=== PATIENT | male | born 2000 | race Caucasian/White ===

== ENCOUNTER 2021-03-07 05:00 | Emergency (ER) | payer MEDICAID, SELFPAY ==
[2021-03-07 05:01] VITALS: BP 133/84; PULSE 91; RESP 16; TEMP 37.1; O2SAT 95; BMI 38.2
[2021-03-07 05:03] VITALS: BP 133/84; PULSE 91; RESP 16; TEMP 37.1; O2SAT 95
--- NOTE | 2021-03-07 05:20 | RAD_ITS ---
STUDY: X-RAY CHEST REASON FOR EXAM: Male, 20 years old. covid TECHNIQUE: Single AP portable view of the chest. COMPARISON: None. FINDINGS: Patchy infiltrate in the right upper lobe and left lower lobe. Lungs otherwise clear. There is no demonstrated pleural abnormality. Normal size heart. Normal mediastinum and lucas. Normal visualized pulmonary arteries. Normal visualized aortic arch and descending thoracic aorta. Normal visualized thoracic spine. Normal visualized ribs, clavicles, and shoulders. There is no demonstrated abnormality of the visualized soft tissue structures of the upper abdomen. RAD/Chest 1 View (Portable) IMPRESSION: Patchy right upper lobe and left lower lobe infiltrate Electronically Signed: Ke Gallagher DO at 6:16 EST Tel , Service support ,
--- NOTE | 2021-03-07 05:26 | ED.VIS.DYS ---
HPI History of Present Illness Chief Complaint: Cold Sx Informant: patient Onset/Context/Timing Onset: Days Context: gradual Timing: Continuous Current Severity: Mild Maximum Severity: Mild Associated Symptoms cough Narrative Narrative: 20-year-old male history of hypothyroidism and hypertension. Has had symptoms for the last 6 days he was tested positive for Covid. He is unvaccinated. States has had nausea, vomiting and diarrhea. He feels dehydrated. He is currently on no medications for the Covid. PE Risk Factors: Negative for Cancer, OCP + Smoking + > 35, Prior DVT or PE, Recent immobilization, Recent surgery and Recent travel Prior similar symptoms: No Recent Illness/Hospitalization: No PFSH PFSH Medical History Depression Hypertension Hypothyroid Home Medications dexamethasone [Decadron] 6 mg PO DAILY #10 tab 03/07/21 [Rx Last Taken Unknown] ondansetron 4 mg PO Q8H PRN 3 Days #7 tab 03/07/21 [Rx Last Taken Unknown] Allergy/AdvReac Type Severity Reaction Status Date / Time Penicillins [PCN] Allergy Hives Verified 03/07/21 05:03 Social History Smoking Status: Current every day smoker tobacco type: e-cigarettes ROS ROS ED ROS Narrative Cough, nausea, vomiting, diarrhea. Review of Systems ROS Unobtainable: Denies due to encephalopathy Constitutional Constitutional ED: Denies chills or fever(s) Eyes Eyes: Denies change in vision ENT ENT ED: Denies ear pain or sore throat Cardiovascular Cardiovascular: Denies chest pain Respiratory/Chest Respiratory/Chest: Reports cough and dyspnea Gastrointestinal Gastrointestinal: Reports diarrhea, nausea and vomiting; Denies abdominal pain Genitourinary Genitourinary ED: Denies dysuria Musculoskeletal Musculoskeletal: Reports myalgias Integumentary Denies rash Neurologic Neurologic: Denies headache(s) Psychiatric Psychiatric: Denies depression Endocrine Endocrinology: Denies polyuria Hematologic/Lymphatic Hematologic/Lymphatic: Denies easy bruising Allergic/Immunologic Allergic/Immunologic ED: Denies urticaria EXAM Physical Exam Narrative Exam Narrative: 20-year-old male no acute distress vital signs stable afebrile. Pulse ox 95% on room air no hypoxia. HEENT exam mildly dry mucous memories. Neck nontender no lymphadenopathy. Lungs clear to auscultation bilaterally. Heart regular rhythm no murmur. Abdomen soft nontender. Moving all 4 extremities. Nontender. Neurologically is awake and alert with no focal motor deficits. He does not look septic or toxic. Const Vital Signs: 03/07/21 05:01 03/07/21 05:03 03/07/21 05:05 Temperature 98.8 F 98.8 F Temperature Source Temporal Temporal Pulse Rate 91 91 Respiratory Rate 16 16 Respiratory Effort Short of Breath Blood Pressure 133/84 H 133/84 H Blood Pressure Mean 100 100 Pulse Ox 95 95 Positive well nourished, well developed and obese; Negative for cachectic, contractures or unkempt General Appearance ED: well developed and NAD; Negative for unkempt, cachectic, contractures or pallor Nutritional Appearance: obese; Negative for cachectic HEENT Reports dry mucous membranes atraumatic; Negative for trauma or tenderness Mouth ED: Yes dry mucous membranes Mouth: dry mucous membranes Eyes PERRL and EOMs intact bilaterally Neck no lymphadenopathy, supple, no meningeal signs and no JVD General: Negative for tenderness Resp normal respiratory effort and clear to auscultation bilaterally Auscultation: Negative for rales, rhonchi or wheezes Cardio regular rate, regular rhythm, S1 normal heart sound, S2 normal heart sound and no murmurs GI non-tender, non-distended and no masses Auscultation: normoactive bowel sounds Palpation: soft; Negative for tender, guarding or rebound tenderness present Back/Spine no CVA tenderness and normal to inspection General Back: Negative for CVA tenderness or tenderness Extremity normal to inspection General Extremety ED: Negative for edema or tenderness General Extremity: Negative for edema Neuro oriented x3 Sensorium / Orientation: alert, oriented to person, oriented to place and oriented to time; Negative for orientation impaired, confused, lethargic or stuporous Motor Exam: strength 5/5 throughout Psych mental status grossly normal Appearance: Negative for unkempt Thought Process: normal thought process Skin no wounds General Skin Exam: Negative for jaundice or pallor Lesions: no lesions Rashes: no rashes MDM MDM MDM Narrative Medical decision making narrative: 20-year-old male Covid +6-day history. Nausea, vomiting and diarrhea clinically looks mildly dehydrated. To be treated with IV fluids and IV Decadron. IV Zofran for the nausea. Checks x-ray will be obtained. He should be able to be discharged home will be referred to outpatient monoclonal antibody therapy and started on Decadron. Radiography Chest X-Ray - ED: 1 View and Read by ED Physician Diagnostic Testing: Chest x-ray, portable, single view interpreted myself consistent with Covid pneumonitis bilateral infiltrates more so on the right upper lung. No effusion. Normal cardiac silhouette. Discharge Plan Triage Chief Complaint: Cold Sx ED Provider: Parminder Myles Dx/Rx/DC Orders Clinical Impression: COVID-19, Nausea, vomiting, and diarrhea, Acute dehydration Instructions: ED Vomiting (Adult), Human Coronaviruses Prescriptions: New dexamethasone [Decadron] 6 mg tablet 6 mg PO DAILY Qty: 10 RF: 0 ondansetron 4 mg tablet,disintegrating 4 mg PO Q8H PRN (Reason: nausea and vomiting) 3 Days Qty: 7 RF: 0 Other Ambulatory Orders: COVID Outpatient Monoclonal Antibody Referral (Routine) Timeframe: 1 Day Facility: [facility] - Location: [facility] Ordered By: Dr. Parminder Myles Primary Care Provider: Sabrina Martin SHUT OFF WORKER Referrals: Scar Potts MD [STAFF PHYSICIAN] - 10-14 Days if not better NOT,DEFINED [NON-STAFF] - Activity Restrictions/Additional Instructions: Plenty of fluids and rest. Zofran for nausea. Decadron daily which is a steroid which should decrease the inflammation from the Covid. Follow-up with your doctor if not improving return emergency department if a lot worse. I referred you to the [facility] monoclonal antibody center. They should call you on Sunday and set up an appointment for you to return to have monoclonal antibodies infused. If they do not call you on Sunday call the hospital emergency department on Sunday and be connected with the monoclonal antibody center. This has to be done within 10 days of the onset of your symptoms. Disposition Disposition: Home, Self Care
[2021-03-07] MEDS: 0.9% Normal Saline 1,000 ML 1000 ML IV (05:35)
[2021-03-07] MEDS: dexAMETHasone 10 MG/ML Vial IV (05:35)
[2021-03-07] MEDS: Ondansetron 4 MG/2 ML Vial IV (05:35)
[2021-03-07 06:04] VITALS: BP 112/75; PULSE 95; RESP 16; O2SAT 97
== END 2021-03-07 06:11 | disposition home or self-care (01) ==
PROVIDERS: Emergency Provider Emergency Medicine; PCP Nurse Practitioner Family
DX: U07.1 COVID-19 (principal); R11.2 Nausea with vomiting, unspecified; R19.7 Diarrhea, unspecified; E86.0 Dehydration; E66.9 Obesity, unspecified
CPT/HCPCS: 71045; 96374; 96375; 99283; J7030; J2405

== ENCOUNTER 2021-03-09 15:48 | Emergency (ER) | payer MEDICAID, SELFPAY ==
[2021-03-09 15:49] VITALS: BP 136/69; PULSE 88; RESP 20; TEMP 36.9; O2SAT 96; BMI 38.2
[2021-03-09 16:00] VITALS: BP 135/86; PULSE 68; RESP 18; TEMP 36.9; O2SAT 97
--- NOTE | 2021-03-09 16:01 | EDS_ITS ---
HPI HPI - URI History of Present Illness Chief Complaint: Cough Informant: patient Onset/Context/Timing Onset: Days Context: Gradual Onset Timing: Continuous Current Severity: Mild Maximum Severity: Mild Associated Symptoms Associated Symptoms: Positive for Nasal Congestion, Myalgias and Productive Cough Narrative Narrative: 20-year-old male diagnosed on Sunday with Covid. Today is day 9. He is already on Decadron. He returned today just because the mild coughing he is having. He does have brown phlegm. No hemoptysis. He did follow-up with monoclonal antibody center. He talked to him on Sunday but never followed up to set up his infusion. I have already put a call out to them I spoke to one of their staff and there to call us back. Prior similar symptoms: Yes Recent Illness/Hospitalization: No ROS ROS ED ROS Narrative Cough. Myalgias. Review of Systems ROS Unobtainable: Denies due to encephalopathy Constitutional Constitutional ED: Reports chills; Denies fever(s) Eyes Eyes: Denies change in vision ENT ENT ED: Denies ear pain Cardiovascular Cardiovascular: Denies chest pain Respiratory/Chest Respiratory/Chest: Reports cough Gastrointestinal Gastrointestinal: Denies abdominal pain Genitourinary Genitourinary ED: Denies dysuria Musculoskeletal Musculoskeletal: Reports myalgias Integumentary Denies rash Neurologic Neurologic: Denies headache(s) Psychiatric Psychiatric: Denies depression Endocrine Endocrinology: Denies polyuria Hematologic/Lymphatic Hematologic/Lymphatic: Denies easy bruising Allergic/Immunologic Allergic/Immunologic ED: Denies urticaria PFSH PFSH Medical History COVID-19 Depression Hypertension Hypothyroid Home Medications dexamethasone [Decadron] 6 mg PO DAILY #10 tab 03/07/21 [Rx Last Taken Unknown] ondansetron 4 mg PO Q8H PRN 3 Days #7 tab 03/07/21 [Rx Last Taken Unknown] cholecalciferol (vitamin D3) 5,000 unit PO DAILY 03/09/21 [History Last Taken Unknown] levothyroxine 50 mcg PO DAILY 03/09/21 [History Last Taken Unknown] lisinopril 5 mg PO DAILY 03/09/21 [History Last Taken Unknown] sertraline 50 mg PO DAILY 03/09/21 [History Last Taken Unknown] Allergy/AdvReac Type Severity Reaction Status Date / Time Penicillins [PCN] Allergy Hives Verified 03/09/21 15:48 Social History Smoking Status: Current every day smoker tobacco type: e-cigarettes EXAM Physical Exam Narrative Exam Narrative: 20-year-old no acute distress vital signs stable afebrile. Pulse ox 96% on room air no signs of hypoxia. HEENT exam unremarkable. Lungs are clear equal symmetrical bilaterally. Heart regular rate and rhythm no murmur rate about 90. Otherwise exam unremarkable. Const Vital Signs: 03/09/21 15:49 Temperature 98.5 F Temperature Source Temporal Pulse Rate 88 Respiratory Rate 20 H Blood Pressure 136/69 H Blood Pressure Mean 91 Pulse Ox 96 Oxygen Delivery Method Room Air Positive well nourished, well developed and obese; Negative for cachectic or contractures General Appearance ED: well developed and NAD; Negative for cachectic, contractures, cyanotic, diaphoretic or pallor Nutritional Appearance: obese; Negative for cachectic HEENT Reports moist mucous membranes normocephalic and atraumatic External Ear: external ears normal Eyes PERRL and EOMs intact bilaterally General Eye ED: Negative for pale conjunctiva or scleral icterus Neck no lymphadenopathy, supple, no meningeal signs and no JVD General: Negative for anterior neck swelling or lymphadenopathy Resp normal respiratory effort and clear to auscultation bilaterally Effort and Inspection: Negative for retractions Auscultation: Negative for rales, rhonchi, wheezes or diminished lung sounds Cardio S1 normal heart sound, S2 normal heart sound and no murmurs Rate: regular rate; Negative for tachycardic Rhythm: regular rhythm; Negative for abnormal rhythm GI non-tender, non-distended and no masses Inspection: Negative for abdominal distention Auscultation: normoactive bowel sounds Palpation: soft; Negative for tender or guarding Back/Spine no CVA tenderness and normal ROM General Back: Negative for CVA tenderness Cervical Spine: Negative for cervical spine tenderness Extremity normal to inspection and full ROM Neuro oriented x3 Sensorium / Orientation: alert, oriented to person, oriented to place and oriented to time; Negative for orientation impaired, lethargic or stuporous Motor Exam: strength 5/5 throughout Psych mental status grossly normal Skin General Skin Exam: Negative for jaundice or pallor Lesions: no lesions Rashes: no rashes MDM MDM MDM Narrative Medical decision making narrative: 20-year-old male with Covid. He i I spoke to the infusion center they did speak the patient on Sunday they reach out to him to set up an infusion and they were unable to reach him. I discussed this with the patient however is done tomorrow. I will discuss with him to make sure he has a copy of his positive Covid results from the local urgent care. He is already on Decadron. He is clinically stable. Discharge Plan Triage Chief Complaint: Cough ED Provider: Parminder Myles Dx/Rx/DC Orders Clinical Impression: COVID-19 Instructions: Human Coronaviruses Prescriptions: No Action dexamethasone [Decadron] 6 mg tablet 6 mg PO DAILY Qty: 10 RF: 0 ondansetron 4 mg tablet,disintegrating 4 mg PO Q8H PRN (Reason: nausea and vomiting) 3 Days Qty: 7 RF: 0 levothyroxine 50 mcg tablet 50 mcg PO DAILY RF: 0 lisinopril 5 mg tablet 5 mg PO DAILY RF: 0 sertraline 50 mg tablet 50 mg PO DAILY RF: 0 cholecalciferol (vitamin D3) 125 mcg (5,000 unit) capsule 5,000 unit PO DAILY RF: 0 Primary Care Provider: Sabrina Martin NP Referrals: Sabrina Martin [employer]S SALES COUNTERPERSON, PARTS SALES COUNTERPERSON-C [Primary Care Provider] - As Needed Activity Restrictions/Additional Instructions: The infusion center will call you tomorrow morning to set you up to have the infusion done tomorrow afternoon. If they do not get a hold you by 1030 tomorrow morning call the emergency department and we will get you in the infusion center connected. Continue your Decadron. You also need to get a copy of your positive Covid results from the urgent care to have it with you tomorrow. Otherwise he cannot do the infusion. Disposition Disposition: Home, Self Care
== END 2021-03-09 16:22 | disposition home or self-care (01) ==
PROVIDERS: Emergency Provider Emergency Medicine; PCP Nurse Practitioner Family
DX: U07.1 COVID-19 (principal); I10 Essential (primary) hypertension; E03.9 Hypothyroidism, unspecified; E66.9 Obesity, unspecified; F32.A Depression, unspecified; F17.290 Nicotine dependence, other tobacco product, uncomplicated; Z68.38 Body mass index [BMI] 38.0-38.9, adult; Z79.899 Other long term (current) drug therapy
CPT/HCPCS: 99282

== ENCOUNTER 2021-03-10 15:51 | Outpatient (CLI) | payer MEDICAID, SELFPAY ==
[2021-03-10 16:18] VITALS: BP 120/85; PULSE 95; RESP 16; TEMP 38; O2SAT 90; BMI 38.2
[2021-03-10] MEDS: 0.9% Saline Lock 10 ML Syringe IV (16:21)
[2021-03-10] MEDS: Acetaminophen 325 MG Tablet 650 MG PO (16:31)
[2021-03-10 16:53] VITALS: BP 134/65; PULSE 93; RESP 22; TEMP 37.8; O2SAT 88
== END 2021-03-10 17:05 | disposition home or self-care (01) ==
LOC: MS3OUT 15:51 → MS3 15:52
PROVIDERS: PCP Nurse Practitioner Family; Referring Provider Nurse Practitioner Adult Health; Visit Provider Nurse Practitioner Adult Health
DX: U07.1 COVID-19 (principal)
CPT/HCPCS: J7050; M0245; Q0245; A4216

== ENCOUNTER 2021-03-10 17:17 | Inpatient (IN) | payer MEDICAID, SELFPAY ==
[2021-03-10 17:19] VITALS: BP 124/60; PULSE 86; RESP 18; TEMP 37.8; O2SAT 96; BMI 38.2
--- NOTE | 2021-03-10 17:49 | RAD_ITS ---
EXAM: XR CHEST, 1 VIEW CLINICAL INDICATION: SOB TECHNIQUE: Frontal view of the chest. This report was created using [employer] report generation technology. COMPARISON: Study done 3 days ago FINDINGS: LUNGS AND PLEURAL SPACES: Diffuse bilateral pneumonia is worse. No pneumothorax. No effusion. HEART: Unremarkable. Cardiac silhouette not enlarged. MEDIASTINUM: Central airways and mediastinal contour are unremarkable. BONES/JOINTS: Unremarkable. SOFT TISSUES: Unremarkable. RAD/Chest 1 View IMPRESSION: Diffuse bilateral pneumonia is worse. Electronically Signed: Hunter Berger MD at 18:57 EST , Service support ,
[2021-03-10 19:03] LABS: Lactic Acid 0.9 mmol/L (0.4-1.9)
--- NOTE | 2021-03-10 20:27 | ED.VIS.DYS ---
HPI History of Present Illness Chief Complaint: Shortness of Breath Detail of Chief Complaint: Positive Covid, hypoxia Informant: patient and family Onset/Context/Timing Onset: Weeks (Onset of symptoms March 01) Context: sudden Timing: Continuous Quality: Positive for Dyspnea on exertion; Negative for Orthopnea, PND and Wheezing Current Severity: Mild Maximum Severity: Severe Worsened by: Exertion and Coughing Relieved by: Nothing and - (Better with oxygen) Associated Symptoms cough, rhinorrhea, post nasal drip, fever and sore throat; Negative for chills or sweats Chest Pain: Positive for None Narrative Narrative: Patient is a 20-year-old male with history of hypothyroidism, depression, hypertension and obesity who was sent from the transfusion center after receiving his Covid monoclonal antibody therapy. He desaturated to 85%. He does vape. He denies history of VTE. He denies leg pain, swelling discoloration. He does report diarrhea. He denies blood in his diarrhea. He denies rash. PE Risk Factors: Negative for Cancer, OCP + Smoking + > 35, Prior DVT or PE, Recent immobilization, Recent surgery and Recent travel Prior similar symptoms: Yes Recent Illness/[facility]: [facility] Medical History COVID-19 Depression Hypertension Hypothyroid Home Medications dexamethasone [Decadron] 6 mg PO DAILY #10 tab 03/07/21 [Rx Last Taken Unknown] ondansetron 4 mg PO Q8H PRN 3 Days #7 tab 03/07/21 [Rx Last Taken Unknown] cholecalciferol (vitamin D3) 5,000 unit PO DAILY 03/09/21 [History Last Taken Unknown] levothyroxine 50 mcg PO DAILY 03/09/21 [History Last Taken Unknown] lisinopril 5 mg PO DAILY 03/09/21 [History Last Taken Unknown] sertraline 50 mg PO DAILY 03/09/21 [History Last Taken Unknown] Allergy/AdvReac Type Severity Reaction Status Date / Time Penicillins [PCN] Allergy Hives Verified 03/10/21 17:19 Social History (Updated 03/10/21 @ 20:[address] Sameer Lynn MD) household members: family Smoking Status: Current every day smoker tobacco type: e-cigarettes Smokeless tobacco user: dissolvable tobacco substance use type: does not use ROS ROS ED Constitutional Constitutional ED: Reports chills and fever(s); Denies sweats or weight loss Eyes Eyes: Denies blurry vision, change in vision or diplopia ENT ENT ED: Reports rhinorrhea and sore throat; Denies ear pain Cardiovascular Cardiovascular: Denies chest pain, orthopnea, palpitations, paroxysmal nocturnal dyspnea or racing heartbeat Respiratory/Chest Respiratory/Chest: Reports cough, dyspnea and dyspnea on exertion; Denies orthopnea, paroxysmal nocturnal dyspnea or sputum Gastrointestinal Gastrointestinal: Reports diarrhea and nausea; Denies abdominal pain, constipation or vomiting Genitourinary Genitourinary ED: Denies dysuria, hematuria or urinary frequency Musculoskeletal Musculoskeletal: Reports arthralgias and myalgias; Denies back pain or neck pain Integumentary Denies rash Neurologic Neurologic: Reports headache(s) and weakness; Denies paresthesias Endocrine Endocrinology: Denies polydipsia, polyphagia or polyuria Hematologic/Lymphatic Hematologic/Lymphatic: Denies easy bleeding or easy bruising Allergic/Immunologic Allergic/Immunologic ED: Denies mouth swelling or urticaria EXAM Physical Exam Const Vital Signs: 03/10/21 17:19 03/10/21 21:15 Temperature 100.1 F H Temperature Source Temporal Pulse Rate 86 88 Respiratory Rate 18 18 Respiratory Effort Short of Breath Respiratory Depth Shallow Respiratory Pattern Tachypnea Blood Pressure 124/60 H Blood Pressure Mean 81 Pulse Ox 96 93 Oxygen Delivery Method Nasal Cannula Nasal Cannula Oxygen Flow Rate (L/min) 2 3 Positive well nourished, well developed and obese General Appearance ED: well developed; Negative for NAD or pallor Nutritional Appearance: obese HEENT Reports TM's clear and dry mucous membranes atraumatic; Negative for tenderness Tympanic Membrane ED: Yes TM's clear Mouth ED: Yes dry mucous membranes Mouth: dry mucous membranes Eyes PERRL and EOMs intact bilaterally General Eye ED: Negative for pale conjunctiva or scleral icterus Neck no lymphadenopathy, supple, no meningeal signs and no JVD Resp No normal respiratory effort and No clear to auscultation bilaterally Auscultation: rales bilateral mid and lower and diminished lung sounds Cardio regular rate, regular rhythm, S1 normal heart sound, S2 normal heart sound and no murmurs GI non-tender, non-distended and no masses Auscultation: normoactive bowel sounds Palpation: soft Back/Spine no CVA tenderness and normal to inspection Back/Spine Narrative: There is no asymmetry, swelling, discoloration, leg vein distention, palpable cords or tenderness along the distribution of the deep venous system. Extremity normal to inspection General Extremety ED: Negative for edema or tenderness General Extremity: Negative for edema Neuro oriented x3, CN's II-XII intact bilaterally and no sensory deficits noted [place] Coma Scale: document GCS findings Spontaneous Obeys Commands Oriented 15 Sensorium / Orientation: alert Motor Exam: strength 5/5 throughout Psych mental status grossly normal Skin no wounds General Skin Exam: Negative for pallor Lesions: no lesions Rashes: no rashes and No rashes noted MDM MDM MDM Narrative Medical decision making narrative: Sent presents from transfusion center because of a pulse ox of 85% after infusion of the monoclonal antibody. Onset of symptoms March 01. He received Decadron. Chest x-ray to confirm pneumonia. Appropriate blood work. He is febrile. Will treat with Tylenol. Lab Data Attestation: I reviewed the patient's lab results. Lab results narrative: His white count is elevated with shift symptoms started 10 days ago blood cultures were obtained and he was started on levofloxacin for possible concomitant bacterial/community-acquired pneumonia. Labs: Laboratory Results - last 24 hr 03/10/21 03/10/21 03/10/21 18:20 21:03 21:03 WBC 15.2 H RBC 4.50 L Hgb 12.6 L Hct 38.8 L MCV 86.2 MCH 28.0 MCHC 32.5 RDW Std Deviation 41.5 RDW Coeff of Viir 13.1 Plt Count 226 MPV 9.3 Immature Gran % (Auto) 1.200 H Neut % (Auto) 87.7 H Lymph % (Auto) 9.1 L Castro % (Auto) 1.9 Eos % (Auto) 0.0 Baso % (Auto) 0.1 Absolute Neuts (auto) 13.4 H Absolute Lymphs (auto) 1.39 Nucleated RBC % 0 PT 15.1 H INR 1.3 APTT 29.5 Sodium Potassium Chloride Carbon Dioxide Anion Gap BUN Creatinine Estim Creat Clear Calc Est GFR (MDRD) Af Amer Est GFR (MDRD) Non-Af BUN/Creatinine Ratio Glucose Lactic Acid 0.9 Calcium Total Bilirubin AST ALT Alkaline Phosphatase Total Protein Albumin Globulin Albumin/Globulin Ratio 03/10/21 21:03 WBC RBC Hgb Hct MCV MCH MCHC RDW Std Deviation RDW Coeff of Viri Plt Count MPV Immature Gran % (Auto) Neut % (Auto) Lymph % (Auto) Castro % (Auto) Eos % (Auto) Baso % (Auto) Absolute Neuts (auto) Absolute Lymphs (auto) Nucleated RBC % PT INR APTT Sodium 136 Potassium 4.6 Chloride 100 Carbon Dioxide 29.0 Anion Gap 7 BUN 8 Creatinine 0.84 Estim Creat Clear Calc 121.01 Est GFR (MDRD) Af Amer 148 Est GFR (MDRD) Non-Af 122 BUN/Creatinine Ratio 9.6 L Glucose 112 H Lactic Acid Calcium 8.1 L Total Bilirubin 0.70 AST 60 H ALT 42 Alkaline Phosphatase 35 L Total Protein 7.2 Albumin 2.7 L Globulin 4.5 H Albumin/Globulin Ratio 0.6 L Radiography Chest X-Ray - ED: 1 View, Read by ED Physician (Bilateral peripheral interstitial pneumonia due to Covid), Normal, Heart and Bony Structures Diagnostic Testing: Clinical Impression(s) from Imaging Studies Chest X-Ray 03/10/21 17:49 IMPRESSION: Diffuse bilateral pneumonia is worse. Electronically Signed: Hunter Berger MD at 18:57 EST , Service support , Discharge Plan Dx/Rx/DC Orders Clinical Impression: Pneumonia due to 2019-nCoV, Acute respiratory failure with hypoxemia, Fever Disposition Disposition: Acute Care [facility]
[2021-03-10 21:09] LABS: Absolute Lymphocyte Count 1.39 X10^3/uL (0.83-4.51); Absolute Neutrophil Count 13.4 X10^3/uL (2.0-7.7); Basophil# 0.02 X10^3/uL; Basophil% 0.1 % (0-1); Hematocrit 38.8 % (40-54); Hemoglobin 12.6 g/dL (13.0-16.5); Lymphocyte # 1.39 X10^3/ul (0.83-4.51); Lymphocyte % 9.1 % (19-41); Mean Corp Hgb Conc 32.5 g/dL (32-36); Mean Corpuscular Volume 86.2 fL (80-94); Mean Platelet Vol. 9.3 fl (6.2-12.0); Monocyte# 0.29 X10^3/uL; Monocyte% 1.9 % (0-10); NRBC Flagged by Analyzer 0 % (0-5); Neutrophil # 13.35 X10^3/uL (2.7-7.7); Neutrophil % 87.7 % (47-70); Platelet Count 226 K/mm3 (150-450); RBC Distribution Width CV 13.1 % (11.6-14.6); RBC Distribution Width SD 41.5 fl (35.1-43.9); White Blood Count 15.2 K/mm3 (4.4-11.0)
[2021-03-10] MEDS: Acetaminophen 325 MG Tablet 650 MG PO (21:12)
[2021-03-10] MEDS: dexAMETHasone 10 MG/ML Vial IV (21:12)
[2021-03-10 21:15] VITALS: PULSE 88; RESP 18; RESP 21; O2SAT 93; O2SAT 94
[2021-03-10] MEDS: levoFLOXacin IV 750 MG/150 ML BAG 100 MG IV (21:28)
[2021-03-10 21:34] LABS: International Normalized Ratio 1.3; Prothrombin Time (Protime)PT. 15.1 SECONDS (11.7-14.9)
[2021-03-10 21:35] LABS: Partial Thromboplast Time 29.5 Seconds (24.1-36.2)
[2021-03-10 21:49] LABS: ALB/GLOB Ratio 0.6 RATIO (0.9-2.4); AST(SGOT) 60 U/L (15-37); Alanine Aminotransfer ALT/SGPT 42 U/L (16-61); Albumin, Serum 2.7 g/dL (3.2-5.0); Alkaline Phosphatase 35 U/L (45-117); Anion Gap 7 (5-15); BUN 8 mg/dL (7-18); BUN/Creat Ratio 9.6 RATIO (10-20); Calcium,Total 8.1 mg/dL (8.5-10.1); Chloride 100 mmol/L (98-107); Creatinine, Serum 0.84 mg/dL (0.70-1.30); EST Glomerular Filtration Rate 122 mL/min (>60); Est Glom Filt Rate - Afr Amer 148 mL/min (>60); Estimated Creatinine Clearance 121.01 ml/min; Globulin 4.5 g/dL (2.2-4.2); Glucose 112 mg/dL (74-106); Potassium 4.6 mmol/L (3.5-5.1); Protein, Total 7.2 g/dL (6.4-8.2); Sodium Level 136 mmol/L (136-145)
--- NOTE | 2021-03-10 22:52 | PCM.HP.STD ---
HPI - General General Date of Admission: 03/10/21 HPI Narrative KATI WRIGHT, is a 20 M with a significant history of hypertension who presents to emergency department with progressive worsening Covid-like symptoms. Patient went to an infusion center for a monoclonal antibody. While he was there he was hypoxic so after completion of the monoclonal antibody infusion he was sent to the emergency department. His Covid-like symptoms started on March 01. He reports at home temperature of 104 Fahrenheit. He has chills, myalgia, diarrhea, nausea, vomiting, diarrhea, rhinorrhea, anosmia and dysgeusia. [facility] Medical History COVID-19 Depression Hypertension Hypothyroid Home Medications dexamethasone [Decadron] 6 mg PO DAILY #10 tab 03/07/21 [Rx Last Taken Unknown] ondansetron 4 mg PO Q8H PRN 3 Days #7 tab 03/07/21 [Rx Last Taken Unknown] cholecalciferol (vitamin D3) 5,000 unit PO DAILY 03/09/21 [History Last Taken Unknown] levothyroxine 50 mcg PO DAILY 03/09/21 [History Last Taken Unknown] lisinopril 5 mg PO DAILY 03/09/21 [History Last Taken Unknown] sertraline 50 mg PO DAILY 03/09/21 [History Last Taken Unknown] Allergy/AdvReac Type Severity Reaction Status Date / Time Penicillins [PCN] Allergy Hives Verified 03/10/21 17:19 Family History Other Cancer Diabetes Heart disease Surgical History History of tonsillectomy Social History household members: family and other housing: apartment current occupational status: employed Smoking Status: Current every day smoker tobacco type: e-cigarettes Smokeless tobacco user: dissolvable tobacco substance use type: does not use ROS ROS Narrative Constitutional: Reports fever and chills. Denies change in weight Eyes: Denies blurry vision, change in eye color, change in vision, discharge from eye(s), double vision, erythema, eye pain, loss of vision or other HEENT: Reports rhinorrhea. Denies abnormal hearing, dysphagia, ear pain, epistaxis, headache(s), hearing loss, nasal congestion, nasal discharge, post nasal drip, sinus pressure, sore throat or other Cardiovascular: Denies chest pain or palpitations. Respiratory/Chest: Reports productive cough. Reports some wheezes. Gastrointestinal: Denies abdominal pain, coffee ground emesis, constipation, diarrhea, dyspepsia, hematemesis, hematochezia, loose stools, melena, nausea, vomiting or other Genitourinary: Denies burning urination, difficulty urinating, dysuria, hematuria, nocturia, urinary frequency, urinary hesitancy, urinary incontinence, urinary urgency or other Musculoskeletal: Reports myalgia. Denies arthralgias, back pain, joint pain, joint stiffness, joint swelling,neck pain or other Neurologic: Denies abnormal gait, abnormal speech, confusion, disequilibrium, dizziness, focal weakness, headache(s), numbness, paresthesias, seizure-like activity, seizures, syncope, tingling, tremor(s) or other Psychiatric: Denies anxiety, depression, homicidal ideation, suicidal ideation or other Endocrinology: Denies change in body appearance, cold intolerance, excessive sweating, heat intolerance, polydipsia, polyuria or other Hematologic/Lymphatic: Denies anemia, easy bleeding, easy bruising, lymphadenopathy or other Integumentary: Denies rashes Allergic/Immunologic: Denies rhinitis, hives, eczema, asthma or other Vital Signs Vital Signs Vital Signs: 03/10/21 17:19 03/10/21 21:15 Temperature 100.1 F H Temperature Source Temporal Pulse Rate 86 88 Respiratory Rate 18 18 Respiratory Effort Short of Breath Respiratory Depth Shallow Respiratory Pattern Tachypnea Blood Pressure 124/60 H Blood Pressure Mean 81 Pulse Ox 96 93 Oxygen Delivery Method Nasal Cannula Nasal Cannula Oxygen Flow Rate (L/min) 2 3 Weight Weight: 104.326 kg Body Mass Index (BMI) 38.2 Physical Exam Narrative Physical exam: General: Well-nourished, well-developed. Head: Normocephalic, atraumatic, no tenderness Eyes: PERRLA, EOMI ENT, no trauma, moist mucous membranes, no rhinorrhea Neck: Nontender, full range of motion, no spinal tenderness, deformities, step-off CVS: Regular rate and rhythm. S1-S2 present. No murmur, gallop or rub. Respiratory : Tachypnea. Rales. Chest wall nontender, no wheezing Abdomen: Soft, nontender, nondistended, normal bowel sounds, no masses : Deferred Back: Nontender, no CVA tenderness, no midline spinal tenderness, deformities, step-offs Extremities: Nontender full range of motion, no trauma Skin: Normal color, no trauma, abrasions Neuro: Alert, oriented, cranial nerves II through XII grossly intact. Psychiatry: Normal mood. Normal affect. Not depressed. Not anxious. Results Lab / Micro Data Result Diagrams: 03/11/21 06:50 03/11/21 06:50 Labs: Laboratory Results - last 24 hr 03/10/21 18:20: Lactic Acid 0.9 03/10/21 21:03: WBC 15.2 H, RBC 4.50 L, Hgb 12.6 L, Hct 38.8 L, MCV 86.2, MCH 28.0, MCHC 32.5, RDW Std Deviation 41.5, RDW Coeff of Viri 13.1, Plt Count 226, MPV 9.3, Immature Gran % (Auto) 1.200 H, Neut % (Auto) 87.7 H, Lymph % (Auto) 9.1 L, [place] % (Auto) 1.9, Eos % (Auto) 0.0, Baso % (Auto) 0.1, Absolute Neuts (auto) 13.4 H, Absolute Lymphs (auto) 1.39, Nucleated RBC % 0 03/10/21 21:03: PT 15.1 H, INR 1.3, APTT 29.5 03/10/21 21:03: Sodium 136, Potassium 4.6, Chloride 100, Carbon Dioxide 29.0, Anion Gap 7, BUN 8, Creatinine 0.84, Estim Creat Clear Calc 121.01, Est GFR (MDRD) Af Amer 148, Est GFR (MDRD) Non-Af 122, BUN/Creatinine Ratio 9.6 L, Glucose 112 H, Calcium 8.1 L, Total Bilirubin 0.70, AST 60 H, ALT 42, Alkaline Phosphatase 35 L, Total Protein 7.2, Albumin 2.7 L, Globulin 4.5 H, Albumin/Globulin Ratio 0.6 L Micro: Microbiology 03/10/21 20:30 Nasal Secretion SARS-CoV-2 Antigen (Rapid) - Final SARS-CoV-2 (COVID 19) Radiology Impression Chest X-Ray 03/10/21 17:49 IMPRESSION: Diffuse bilateral pneumonia is worse. Electronically Signed: Hunter Berger MD at 18:57 EST , Service support , Assessment & Plan Assessment/Plan (1) Acute respiratory failure with hypoxemia: (2) COVID-19: PLAN: Acute hypoxemic respiratory failure secondary to SARS- COV 2 On room air oxygen saturation was 88% at the emergency department and required supplemental oxygenation. Supplemental oxygenation continued. Emergent department microbiology reviewed showed a positive rapid Covid antigen. Actual chest xray independently interpreted showed bilateral pneumonia and agree with radiologist interpretation above Procalcitonin ordered. Creatinine clearance is 121.01. AST is mildly elevated at 60 and ALT is normal. Will start patient on remdesivir. Also Decadron ordered. Trend CBC and CMP Tylenol for fever Mucinex ordered Hypertension Blood pressure is not within goal Lisinopril continued continued. Trend blood pressure and adjust blood pressure medications. Depression/anxiety sertraline continued Hypothyroidism Synthroid continued DVT prophylaxis: Subcutaneous Lovenox ordered. Charges/Coding Visit Charges Inpatient E&M: 44522 Init Hosp L3
[2021-03-10 23:04] VITALS: BP 113/63; PULSE 109; RESP 14; TEMP 37.2; O2SAT 93
[2021-03-11] VITALS (14 sets, daily range): BP systolic 113–143; BP diastolic 54–64; PULSE 59–90; RESP 16–24; TEMP 36.3–37.2; O2SAT 91–97; BMI 40.4
--- NOTE | 2021-03-11 00:08 | PCS.PANDOC ---
PANDEMIC DOCUMENTATION INITIATED: Date: 11/15/2020 Time: 190
[2021-03-11] MEDS: guaiFENesin 1,200 MG Tablet 1200 MG PO ×2 (00:35→09:48)
[2021-03-11] MEDS: Enoxaparin 30 MG/0.3 ML Syringe SC ×2 (00:35→09:48)
[2021-03-11 00:41] LABS: Procalcitonin 0.27 ng/mL (0.00-0.09)
[2021-03-11 07:17] LABS: Absolute Lymphocyte Count 1.11 X10^3/uL (0.83-4.51); Absolute Neutrophil Count 12.9 X10^3/uL (2.0-7.7); Basophil# 0.03 X10^3/uL; Basophil% 0.2 % (0-1); Hemoglobin 13.1 g/dL (13.0-16.5); Lymphocyte # 1.11 X10^3/ul (0.83-4.51); Lymphocyte % 7.7 % (19-41); Mean Corp Hgb Conc 32.8 g/dL (32-36); Mean Corpuscular Volume 85.5 fL (80-94); Mean Platelet Vol. 9.1 fl (6.2-12.0); Monocyte# 0.32 X10^3/uL; Monocyte% 2.2 % (0-10); NRBC Flagged by Analyzer 0.1 % (0-5); Neutrophil # 12.87 X10^3/uL (2.7-7.7); POSITIVE MORPHOLOGY YES; Platelet Count 297 K/mm3 (150-450); RBC Distribution Width CV 12.9 % (11.6-14.6); RBC Distribution Width SD 40.1 fl (35.1-43.9); Red Blood Count 4.68 M/mm3 (4.6-6.2); White Blood Count 14.5 K/mm3 (4.4-11.0)
[2021-03-11 07:26] LABS: Differential Indicated SCAN CRITERIA MET
[2021-03-11 07:42] LABS: ALB/GLOB Ratio 0.5 RATIO (0.9-2.4); AST(SGOT) 37 U/L (15-37); Alanine Aminotransfer ALT/SGPT 38 U/L (16-61); Albumin, Serum 2.4 g/dL (3.2-5.0); Alkaline Phosphatase 34 U/L (45-117); Anion Gap 7 (5-15); BUN 9 mg/dL (7-18); BUN/Creat Ratio 11.5 RATIO (10-20); Calcium,Total 8.2 mg/dL (8.5-10.1); Chloride 99 mmol/L (98-107); Creatinine, Serum 0.78 mg/dL (0.70-1.30); EST Glomerular Filtration Rate 132 mL/min (>60); Est Glom Filt Rate - Afr Amer 160 mL/min (>60); Estimated Creatinine Clearance 130.32 ml/min; Globulin 4.4 g/dL (2.2-4.2); Glucose 130 mg/dL (74-106); Potassium 3.4 mmol/L (3.5-5.1); Protein, Total 6.8 g/dL (6.4-8.2); Sodium Level 136 mmol/L (136-145)
[2021-03-11 07:55] LABS: Anisocytosis 1+
[2021-03-11] MEDS: Lisinopril 5 MG Tablet PO (09:48)
[2021-03-11] MEDS: Sertraline 50 MG Tablet PO (09:48)
[2021-03-11] MEDS: Cholecalciferol (VIT D3) 25 MCG TABLET (1,000 UNITS) 125 MCG PO (09:48)
[2021-03-11] MEDS: Levothyroxine 50 MCG Tablet PO (09:48)
[2021-03-11] MEDS: dexAMETHasone 2 MG TABLET 6 MG PO (09:49)
--- NOTE | 2021-03-11 13:04 | PN.HOSP_ITS ---
Subjective Subjective Breathing ok, tolerating 6 liters. Unvaccinated. Objective Data Objective Data Vital Signs: Vital Signs Temp Pulse Resp BP Pulse Ox 37.2 C 74 16 117/59 L 94 03/11/21 09:45 03/11/21 09:45 03/11/21 09:45 03/11/21 09:45 03/11/21 10:41 Oxygen Flow Rate (L/min) 6 Oxygen Delivery Method Nasal Cannula Weight: 110.1 kg Body Mass Index (BMI) 40.4 Intake & Output: Intake and Output for Last 24 Hours 03/09/21 03/10/21 03/11/21 23:59 23:59 23:59 Intake Total 150 / 150 250 / 250 Output Total 1025 / 1025 Balance 150 / 150 -775 / -775 Lab / Micro Data Result Diagrams: 03/11/21 06:50 03/11/21 06:50 Labs: Laboratory Results - last 24 hr 03/10/21 18:20: Lactic Acid 0.9 03/10/21 18:20: Procalcitonin 0.27 H 03/10/21 21:03: WBC 15.2 H, RBC 4.50 L, Hgb 12.6 L, Hct 38.8 L, MCV 86.2, MCH 28.0, MCHC 32.5, RDW Std Deviation 41.5, RDW Coeff of Viri 13.1, Plt Count 226, MPV 9.3, Immature Gran % (Auto) 1.200 H, Neut % (Auto) 87.7 H, Lymph % (Auto) 9.1 L, [place] % (Auto) 1.9, Eos % (Auto) 0.0, Baso % (Auto) 0.1, Absolute Neuts (auto) 13.4 H, Absolute Lymphs (auto) 1.39, Nucleated RBC % 0 03/10/21 21:03: PT 15.1 H, INR 1.3, APTT 29.5 03/10/21 21:03: Sodium 136, Potassium 4.6, Chloride 100, Carbon Dioxide 29.0, Anion Gap 7, BUN 8, Creatinine 0.84, Estim Creat Clear Calc 121.01, Est GFR (MDRD) Af Amer 148, Est GFR (MDRD) Non-Af 122, BUN/Creatinine Ratio 9.6 L, Glucose 112 H, Calcium 8.1 L, Total Bilirubin 0.70, AST 60 H, ALT 42, Alkaline Phosphatase 35 L, Total Protein 7.2, Albumin 2.7 L, Globulin 4.5 H, Albumin/Globulin Ratio 0.6 L 03/11/21 06:50: WBC 14.5 H, RBC 4.68, Hgb 13.1, Hct 40.0, MCV 85.5, MCH 28.0, MCHC 32.8, RDW Std Deviation 40.1, RDW Coeff of Viri 12.9, Plt Count 297, MPV 9.1, Immature Gran % (Auto) 0.900, Neut % (Auto) 89.0 H, Lymph % (Auto) 7.7 L, [place] % (Auto) 2.2, Eos % (Auto) 0.0, Baso % (Auto) 0.2, Absolute Neuts (auto) 12.9 H, Absolute Lymphs (auto) 1.11, Nucleated RBC % 0.1, Anisocytosis 1+ 03/11/21 06:50: Sodium 136, Potassium 3.4 L, Chloride 99, Carbon Dioxide 30.0, Anion Gap 7, BUN 9, Creatinine 0.78, Estim Creat Clear Calc 130.32, Est GFR (MDRD) Af Amer 160, Est GFR (MDRD) Non-Af 132, BUN/Creatinine Ratio 11.5, Glucose 130 H, Calcium 8.2 L, Total Bilirubin 0.50, AST 37, ALT 38, Alkaline Phosphatase 34 L, Total Protein 6.8, Albumin 2.4 L, Globulin 4.4 H, Albumin/Gl obulin Ratio 0.5 L Micro: Microbiology 03/10/21 20:30 Nasal Secretion SARS-CoV-2 Antigen (Rapid) - Final SARS-CoV-2 (COVID 19) Radiography Diagnostic Testing: Radiology Impression Chest X-Ray 03/10/21 17:49 IMPRESSION: Diffuse bilateral pneumonia is worse. Electronically Signed: Hunter Berger MD at 18:57 EST , Service support , Physical Exam Const alert and no apparent distress Resp normal respiratory effort, no retractions, no use of accessory muscles and clear to auscultation bilaterally Cardio regular rate, regular rhythm, S1 normal heart sound and S2 normal heart sound GI normal to inspection, nondistended, normoactive bowel sounds, soft to palpation, non-tender and non-distended Assessment & Plan Assessment/Plan (1) Acute respiratory failure with hypoxemia: (2) COVID-19: PLAN: 1. Acute hypoxemic respiratory failure secondary to SARS- COV 2 On room air oxygen saturation was 88% at the emergency department and required supplemental oxygenation. Supplemental oxygenation continued. Actual chest xray independently interpreted showed bilateral pneumonia and agree with radiologist interpretation above Procalcitonin ordered. Creatinine clearance is 121.01. AST is mildly elevated at 60 and ALT is normal. Will start patient on remdesivir. Also Decadron ordered. Trend CBC and CMP Tylenol for fever Mucinex ordered check D-dimer 2. Acute COVID 19 unvaccinated on dexamethasone and remdesivir on set 03/01, quarantine through 03/20 3. Hypertension Blood pressure is not within goal Lisinopril continued continued. Trend blood pressure and adjust blood pressure medications. 4. Depression/anxiety sertraline continued 5. Hypothyroidism Synthroid continued 6. DVT prophylaxis: Subcutaneous Lovenox ordered. Charges/Coding Visit Charges Inpatient E&M: 93999 Subs Hosp L2
--- NOTE | 2021-03-11 14:15 | CASEMGMT ---
NERY DOBSON assessment: Initial transition planning/care coordination assessment. NERY DOBSON introduced self and role at [facility], pt voices understanding and consents to assessment. Pt speaks in full sentences on 6L nc. Pt is A/Ox4 and answers questions appropriately. Pt states is not vaccinated and tested COVID + at [facility] urgent care in [place] on 03/02 or 03/03. Pt states family is fine and states no concerns getting resources once home. Care providers, pharmacy, and demographics verified. Presentation: Pt desatted s/p monoclonal antibx infusion Admitting dx: COVID PCP: Mario Specialists: Pt states no current specialists. Preferred Pharmacy: [facility] Insurance: [facility] Prescription Benefit: [facility] Living Will/HPOA: Pt does not have LW/HPOA and declines AD info at this time. LNOK: Heike Lynn, sister Living Arrangements: Pt lives with sig other in apt with 1-2 steps in and states no concerns at home. Pt states is independent with ADL's. Transportation: Pt drives self and states no transportation concerns. DME/HHC: Pt states no current DME or need for DME. Pt states no preference for DME, if qualifies for home oxygen. Pt states no hx of HHC or SNF. Pt states no concerns with going home at discharge. 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 Pt states vapes daily but does not drink ETOH. Pt states no further concerns/needs. CM to to follow for home oxygen need and any further discharge planning/needs. Advised pt to ask for CM if any further questions/concerns/needs arise, voices understanding. Pt Goal: Home Plan[place] NERY DOBSON
[2021-03-11 14:23] LABS: D-Dimer Quantitative (DVT/PE) 0.81 FEU/ug/m (0.27-0.49)
--- NOTE | 2021-03-11 14:25 | CASEMGMT ---
Green sheet left on chart for home oxygen. Piedad GABRIEL CM
--- NOTE | 2021-03-11 14:32 | CT_ITS ---
STUDY: CTA CHEST REASON FOR EXAM: Male, 20 years old. resp failure RADIATION DOSAGE (If Supplied By Facility): CTDIvol = ( 15.48 ) mGy, DLP = ( 1044.07 ) mGycm TECHNIQUE: The examination was performed with the intravenous administration of IV 100mL Isovue-370. Post-processing of the angiographic images was performed, with multiplanar reformation and 3D reconstruction. Individualized dose optimization techniques were used for this CT. COMPARISON: Comparison is made with prior chest radiograph dated 03/10/2021. FINDINGS: Normal enhancement of the main pulmonary artery and right and left pulmonary arteries. Normal enhancement of the bilateral peripheral pulmonary arteries. There is no demonstrated pulmonary embolism. Normal thoracic aorta and visualized great vessels. There is no demonstrated aortic dissection. Normal heart and pericardium. Normal mediastinum. Normal hilar regions. Normal visualized trachea and bronchi. The lungs are well expanded. Diffuse bilateral air space disease involving both upper and lower lobes. Normal pleura. Normal chest wall structures. Normal osseous structures. Normal visualized upper abdomen. CT/CTA Chest W/WO Contrast IMPRESSION: Diffuse bilateral pulmonary infiltrates involving both upper and lower lobes. No evidence of pulmonary emboli. Electronically Signed: Jere Solis MD at 15:09 EST , Service support ,
[2021-03-12] VITALS (13 sets, daily range): BP systolic 103–121; BP diastolic 58–75; PULSE 46–84; RESP 18–20; TEMP 36–36.4; O2SAT 91–98
[2021-03-12] MEDS: Acetaminophen 325 MG Tablet 650 MG PO ×3 (00:01→22:35)
[2021-03-12] MEDS: guaiFENesin 1,200 MG Tablet 1200 MG PO ×3 (00:02→22:35)
[2021-03-12] MEDS: Enoxaparin 30 MG/0.3 ML Syringe SC ×3 (00:02→22:35)
[2021-03-12] MEDS: MELATONIN 3 MG TABLET PO ×2 (00:03→22:35)
[2021-03-12 07:37] LABS: Absolute Lymphocyte Count 2.01 X10^3/uL (0.83-4.51); Absolute Neutrophil Count 7.3 X10^3/uL (2.0-7.7); Basophil# 0.02 X10^3/uL; Basophil% 0.2 % (0-1); Hematocrit 40.7 % (40-54); Hemoglobin 13.2 g/dL (13.0-16.5); Lymphocyte # 2.01 X10^3/ul (0.83-4.51); Mean Corp Hgb Conc 32.4 g/dL (32-36); Mean Corpuscular Hgb 27.9 pg (27.0-32.0); Monocyte# 0.53 X10^3/uL; Monocyte% 5.3 % (0-10); NRBC Flagged by Analyzer 0.2 % (0-5); Neutrophil # 7.33 X10^3/uL (2.7-7.7); Neutrophil % 73.1 % (47-70); Platelet Count 364 K/mm3 (150-450); RBC Distribution Width CV 12.9 % (11.6-14.6); RBC Distribution Width SD 40.8 fl (35.1-43.9); Red Blood Count 4.73 M/mm3 (4.6-6.2)
[2021-03-12 08:12] LABS: ALB/GLOB Ratio 0.5 RATIO (0.9-2.4); AST(SGOT) 47 U/L (15-37); Alanine Aminotransfer ALT/SGPT 63 U/L (16-61); Albumin, Serum 2.3 g/dL (3.2-5.0); Alkaline Phosphatase 33 U/L (45-117); Anion Gap 4 (5-15); BUN 13 mg/dL (7-18); BUN/Creat Ratio 17.8 RATIO (10-20); Calcium,Total 8.7 mg/dL (8.5-10.1); Chloride 102 mmol/L (98-107); Creatinine, Serum 0.73 mg/dL (0.70-1.30); EST Glomerular Filtration Rate 143 mL/min (>60); Est Glom Filt Rate - Afr Amer 173 mL/min (>60); Estimated Creatinine Clearance 139.24 ml/min; Globulin 4.3 g/dL (2.2-4.2); Glucose 113 mg/dL (74-106); Potassium 3.7 mmol/L (3.5-5.1); Protein, Total 6.6 g/dL (6.4-8.2); Sodium Level 139 mmol/L (136-145)
[2021-03-12] MEDS: Sertraline 50 MG Tablet PO (10:52)
[2021-03-12] MEDS: dexAMETHasone 2 MG TABLET 6 MG PO (10:52)
[2021-03-12] MEDS: Cholecalciferol (VIT D3) 25 MCG TABLET (1,000 UNITS) 125 MCG PO (10:52)
[2021-03-12] MEDS: Levothyroxine 50 MCG Tablet PO (10:52)
[2021-03-12] MEDS: Lisinopril 5 MG Tablet PO (10:52)
--- NOTE | 2021-03-12 14:36 | PN.HOSP_ITS ---
Subjective Subjective Breathing well. No events overnight. Objective Data Objective Data Vital Signs: Vital Signs Temp Pulse Resp BP Pulse Ox 36.0 C L 62 18 119/59 L 96 03/12/21 09:00 03/12/21 09:00 03/12/21 09:00 03/12/21 09:00 03/12/21 09:00 Oxygen Flow Rate (L/min) 5 Oxygen Delivery Method Nasal Cannula Weight: 109.6 kg Body Mass Index (BMI) 40.4 Intake & Output: Intake and Output for Last 24 Hours 03/10/21 03/11/21 03/12/21 23:59 23:59 23:59 Intake Total 150 / 150 1590 / 1590 650 / 650 Output Total 1025 / 1025 500 / 500 Balance 150 / 150 565 / 565 150 / 150 Lab / Micro Data Result Diagrams: 03/12/21 07:04 03/12/21 07:04 Labs: Laboratory Results - last 24 hr 03/12/21 07:04: WBC 10.0, RBC 4.73, Hgb 13.2, Hct 40.7, MCV 86.0, MCH 27.9, MCHC 32.4, RDW Std Deviation 40.8, RDW Coeff of Viri 12.9, Plt Count 364, MPV 9.0, Immature Gran % (Auto) 1.400 H, Neut % (Auto) 73.1 H, Lymph % (Auto) 20.0, [place]w % (Auto) 5.3, Eos % (Auto) 0.0, Baso % (Auto) 0.2, Absolute Neuts (auto) 7.3, Absolute Lymphs (auto) 2.01, Nucleated RBC % 0.2 03/12/21 07:04: Sodium 139, Potassium 3.7, Chloride 102, Carbon Dioxide 33.0 H, Anion Gap 4 L, BUN 13, Creatinine 0.73, Estim Creat Clear Calc 139.24, Est GFR (MDRD) Af Amer 173, Est GFR (MDRD) Non-Af 143, BUN/Creatinine Ratio 17.8, Glucose 113 H, Calcium 8.7, Total Bilirubin 0.60, AST 47 H, ALT 63 H, Alkaline Phosphatase 33 L, Total Protein 6.6, Albumin 2.3 L, Globulin 4.3 H, Albumin/Globulin Ratio 0.5 L Micro: Microbiology 03/10/21 20:30 Nasal Secretion SARS-CoV-2 Antigen (Rapid) - Final SARS-CoV-2 (COVID 19) Radiography Diagnostic Testing: Radiology Impression Chest CTA 03/11/21 14:32 IMPRESSION: Diffuse bilateral pulmonary infiltrates involving both upper and lower lobes. No evidence of pulmonary emboli. Electronically Signed: Jere Solis MD at 15:09 EST , Service support , Physical Exam Const alert and no apparent distress Resp normal respiratory effort, no retractions, no use of accessory muscles and clear to auscultation bilaterally Cardio regular rate, regular rhythm, S1 normal heart sound and S2 normal heart sound GI normal to inspection, nondistended, normoactive bowel sounds, soft to palpation, non-tender and non-distended Extremity normal to inspection Assessment & Plan Assessment/Plan (1) Acute respiratory failure with hypoxemia: (2) COVID-19: PLAN: 1. Acute hypoxemic respiratory failure secondary to SARS- COV 2 On room air oxygen saturation was 88% at the emergency department and required supplemental oxygenation. Supplemental oxygenation continued. Actual chest xray independently interpreted showed bilateral pneumonia and agree with radiologist interpretation above Procalcitonin ordered. Creatinine clearance is 121.01. AST is mildly elevated at 60 and ALT is normal. Will start patient on remdesivir. Also Decadron ordered. Trend CBC and CMP Tylenol for fever Mucinex ordered CTA negative for PE furosemide challenge. 2. Acute COVID 19 unvaccinated on dexamethasone and remdesivir on set 03/01, quarantine through 03/20 3. Hypertension Blood pressure is not within goal Lisinopril continued continued. Trend blood pressure and adjust blood pressure medications. 4. Depression/anxiety sertraline continued 5. Hypothyroidism Synthroid continued 6. DVT prophylaxis: Subcutaneous Lovenox ordered. Charges/Coding Visit Charges Inpatient E&M: 41218 Subs Hosp L2
[2021-03-12] MEDS: Furosemide 40 MG/4 ML Vial IV (17:11)
[2021-03-12] MEDS: 0.9% Saline Lock 10 ML Syringe IV (17:12)
[2021-03-13] VITALS (9 sets, daily range): BP systolic 97–119; BP diastolic 60–65; PULSE 45–79; RESP 18–20; TEMP 36.4–36.7; O2SAT 85–97
[2021-03-13] MEDS: Acetaminophen 325 MG Tablet 650 MG PO (05:56)
[2021-03-13] MEDS: Cholecalciferol (VIT D3) 25 MCG TABLET (1,000 UNITS) 125 MCG PO (08:39)
[2021-03-13] MEDS: Sertraline 50 MG Tablet PO (08:39)
[2021-03-13] MEDS: dexAMETHasone 2 MG TABLET 6 MG PO (08:39)
[2021-03-13] MEDS: guaiFENesin 1,200 MG Tablet 1200 MG PO (08:39)
[2021-03-13] MEDS: Levothyroxine 50 MCG Tablet PO (08:39)
[2021-03-13] MEDS: Enoxaparin 30 MG/0.3 ML Syringe SC (08:39)
[2021-03-13] MEDS: Lisinopril 5 MG Tablet PO (08:39)
[2021-03-13] MEDS: Furosemide 40 MG/4 ML Vial IV (11:06)
--- NOTE | 2021-03-13 15:22 | DCINST_ITS ---
Discharge Instructions Diet Discharge Diet: No restrictions Activity Discharge Activity: Return to Normal Activity (ease back into normal routine. ) Additional Activity Instructions:: Self isolate for at least 20 days since symptoms began 03/01-03/20/2021 AND at least one day (24 hours) have passed since resolution of fever without the use of fever-reducing agents AND improvement of symptoms (e.g., cough, shortness of breath) When around people in the same room, wear a face mask. Individuals also in the room should wear a mask. If possible, use a different bathroom and bedroom. Perform adequate hand hygiene. Avoid sharing dishes, glasses, etc. Wear oxygen at 4 L/min with rest and activity. Follow Up Care Test Results: Test results from this visit will be discussed in further detail at your follow-up appointment, if applicable. Discharge Plan Admission Admit Date/Time: 03/10/21 23:09 Primary Reason for Your Visit: COVSUNSHINE 19 Attending Provider: Shakeel Desai Primary Care Provider: Sabrina Martin NP Discharge Orders/Prescriptions Prescriptions: Continued dexamethasone [Decadron] 6 mg tablet 6 mg PO DAILY Qty: 10 RF: 0 ondansetron 4 mg tablet,disintegrating 4 mg PO Q8H PRN (Reason: nausea and vomiting) 3 Days Qty: 7 RF: 0 levothyroxine 50 mcg tablet 50 mcg PO DAILY RF: 0 lisinopril 5 mg tablet 5 mg PO DAILY RF: 0 sertraline 50 mg tablet 50 mg PO DAILY RF: 0 cholecalciferol (vitamin D3) 125 mcg (5,000 unit) capsule 5,000 unit PO DAILY RF: 0 Referrals / Follow Up: Sabrina Martin NP, ASSOCIATE PROFESSOR OF LITERACY-C [Primary Care Provider] - Within 2 Weeks Disposition Disposition (needs filled in before D/C Order can be placed): Home, Self Care
--- NOTE | 2021-03-13 15:25 | DS.PCM_ITS ---
Providers Date of Admission: 03/10/21 Primary Care Physician: Sabrina Martin NP-C Reason For Visit: ACUTE HYPOXEMIC RESPIRATORY FAILURE SECONDARY Diagnosis Discharge Diagnosis (1) Acute respiratory failure with hypoxemia: Status: Acute Code(s): J96.01 - Acute respiratory failure with hypoxia (2) COVID-19: Status: Acute Code(s): U07.1 - COVID-19 Medications at Discharge Home Medications dexamethasone [Decadron] 6 mg PO DAILY #10 tab 03/07/21 ondansetron 4 mg PO Q8H PRN 3 Days #7 tab 03/07/21 cholecalciferol (vitamin D3) 5,000 unit PO DAILY 03/09/21 levothyroxine 50 mcg PO DAILY 03/09/21 lisinopril 5 mg PO DAILY 03/09/21 sertraline 50 mg PO DAILY 03/09/21 Hospital Course Operations None Procedures None Summary of Care Provided Minutes Spent on Discharge: 32 Hospital Course: This is a 20-year-old male presents with a COVID-19. Onset of symptoms was on March 01. Presents with acute hypoxic respiratory failure. Patient was placed on oxygen is steadily improved. Patient was treated with dexamethasone as well as remdesivir. Patient has improved today he dropped down to 91% 4 L with exertion. He is currently on 9 3% on room air at rest but does require 4L with activity. Patient be discharged home in stable condition. Physical Exam Const alert and no apparent distress Eyes PERRL and EOMs intact bilaterally Resp normal respiratory effort, no retractions, no use of accessory muscles and clear to auscultation bilaterally Cardio regular rate, regular rhythm, S1 normal heart sound and S2 normal heart sound GI normal to inspection, nondistended, normoactive bowel sounds, soft to palpation, non-tender and non-distended Extremity normal to inspection Weight / BMI Weight Weight: 67.1 kg Body Mass Index (BMI) 40.4 ABG / Lab / Microbiology Data Result Diagrams: 03/12/21 07:04 03/12/21 07:04 Microbiology: Microbiology 03/10/21 20:30 Nasal Secretion SARS-CoV-2 Antigen (Rapid) - Final SARS-CoV-2 (COVID 19) D/C Instructions Discharge Diet: No restrictions Additional Activity Instructions: Self isolate for at least 20 days since symptoms began 03/01-03/20/2021 AND at least one day (24 hours) have passed since resolution of fever without the use of fever-reducing agents AND improvement of symptoms (e.g., cough, shortness of breath) When around people in the same room, wear a face mask. Individuals also in the room should wear a mask. If possible, use a different bathroom and bedroom. Perform adequate hand hygiene. Avoid sharing dishes, glasses, etc. Wear oxygen at 4 L/min with rest and activity. Meaningful Use Info Meaningful Use Diagnoses (Choose all that apply): None applicable Discharge Plan Admission Admit Date/Time: 03/10/21 23:09 Primary Reason for Your Visit: COVID 19 Attending Provider: Shakeel Desai Primary Care Provider: Sabrina Martin NP Discharge Orders/Prescriptions Prescriptions: Continued dexamethasone [Decadron] 6 mg tablet 6 mg PO DAILY Qty: 10 RF: 0 ondansetron 4 mg tablet,disintegrating 4 mg PO Q8H PRN (Reason: nausea and vomiting) 3 Days Qty: 7 RF: 0 levothyroxine 50 mcg tablet 50 mcg PO DAILY RF: 0 lisinopril 5 mg tablet 5 mg PO DAILY RF: 0 sertraline 50 mg tablet 50 mg PO DAILY RF: 0 cholecalciferol (vitamin D3) 125 mcg (5,000 unit) capsule 5,000 unit PO DAILY RF: 0 Referrals / Follow Up: Sabrina Martin NP, MASTER SHEET CLERK-C [Primary Care Provider] - Within 2 Weeks Disposition Disposition (needs filled in before D/C Order can be placed): Home, Self Care Charges/Coding Visit Charges Inpatient E&M: 13656 Disch Hosp
== END 2021-03-13 18:35 | disposition home or self-care (01) | DRG 137 ==
LOC: ED 20:59 → PCU 23:20
PROVIDERS: Admitting Provider Hospitalist; Emergency Provider Emergency Medicine; PCP Nurse Practitioner Family
DX: U07.1 COVID-19 (principal); J12.82 Pneumonia due to coronavirus disease 2019; J96.01 Acute respiratory failure with hypoxia; I10 Essential (primary) hypertension; E86.0 Dehydration; E66.9 Obesity, unspecified; E03.9 Hypothyroidism, unspecified; F32.A Depression, unspecified; F41.9 Anxiety disorder, unspecified; F17.290 Nicotine dependence, other tobacco product, uncomplicated; Z68.41 Body mass index [BMI] 40.0-44.9, adult; Z79.899 Other long term (current) drug therapy
CPT/HCPCS: 36415; 71045; 71275; 80053; 83605; 84145; 85025; 85379; 85610; 85730; 87040; 87426; 94762; 96374; 96375; 99282; 99283; 99285; 99406; J7030; J7050; M0245; Q0245; Q9967; A4216; J1940; J2405

== ENCOUNTER 2021-04-07 17:20 | Emergency (ER) | payer MEDICAID, SELFPAY ==
[2021-04-07] VITALS (7 sets, daily range): BP systolic 119–148; BP diastolic 72–99; PULSE 68–95; RESP 17–19; TEMP 36.3; O2SAT 99–100; BMI 39.2
--- NOTE | 2021-04-07 17:32 | EKG12_ITS ---
Test Reason : SYNCOPE Blood Pressure : / mmHG Vent. Rate : 078 BPM Atrial Rate : 078 BPM P-R Int : 136 ms QRS Dur : 092 ms QT Int : 370 ms P-R-T Axes : 027 043 036 degrees QTc Int : 421 ms Normal sinus rhythm Normal ECG Confirmed by SHERYL ROMANO, ALEK ([id number]), production editor ALEXEI CREWS ([id number]) on 04/11/2021 10:25:07 AM Referred By: AMY Confirmed By:ALEK SAUCEDO MD
[2021-04-07 17:36] LABS: Bedside Glucose 101 mg/dL (70-110)
--- NOTE | 2021-04-07 17:40 | NURSING ---
NO OLD EKGS
--- NOTE | 2021-04-07 18:09 | EDS_ITS ---
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 EMS was called. EMS reports that he was hypoxic at 70%. It took them nonrebreather for 10 or 15 minutes while in route to get him up into the 90s. Patient denies any dyspnea, chest pain, palpitations, or any other prodromal symptoms including headache, palpitations, chest pain, dyspnea. He states he simply felt lightheaded and then passed out now he feels fine. He had Covid 1 month ago. He was sick for about 2 weeks, then he felt fine for another week, and for the last week he has had a sinus infection along with earache on both sides. He was prescribed a Z-Lex which he just recently completed, and since he is still having pain in his ears he was prescribed [place] that he went to fill today. [facility] Medical History COVID-19 Depression Hypertension Hypothyroid Home Medications dexamethasone [Decadron] 6 mg PO DAILY #10 tab 03/07/21 [Rx Last Taken Unknown] ondansetron 4 mg PO Q8H PRN 3 Days #7 tab 03/07/21 [Rx Last Taken Unknown] cholecalciferol (vitamin D3) 5,000 unit PO DAILY 03/09/21 [History Last Taken Unknown] levothyroxine 50 mcg PO DAILY 03/09/21 [History Last Taken Unknown] lisinopril 5 mg PO DAILY 03/09/21 [History Last Taken Unknown] sertraline 50 mg PO DAILY 03/09/21 [History Last Taken Unknown] Allergy/AdvReac Type Severity Reaction Status Date / Time Penicillins [PCN] Allergy Hives Verified 03/10/21 17:19 shellfish derived Allergy PT UNSURE Verified 03/11/21 14:39 OF REACTION Family History Other Cancer Diabetes Heart disease Surgical History History of tonsillectomy Social History household members: family and other housing: apartment current occupational status: employed Smoking Status: Current every day smoker tobacco type: e-cigarettes Smokeless tobacco user: dissolvable tobacco substance use type: does not use ROS ROS ED Constitutional Constitutional ED: Denies chills or fever(s) Eyes Eyes: Denies change in vision or diplopia ENT ENT ED: Reports ear pain bilateral, nasal congestion and sinus pressure; Denies rhinorrhea or sore throat Cardiovascular Cardiovascular: Denies chest pain or palpitations Respiratory/Chest Respiratory/Chest: Denies cough or dyspnea Gastrointestinal Gastrointestinal: Denies abdominal pain, diarrhea, nausea or vomiting Genitourinary Genitourinary ED: Denies dysuria or hematuria Musculoskeletal Musculoskeletal: Denies back pain or neck pain Integumentary Denies abscess or rash Neurologic Neurologic: Denies headache(s), paresthesias or weakness Psychiatric Psychiatric: Denies anxiety or suicidal thoughts EXAM Physical Exam Const Vital Signs: 04/07/21 17:22 04/07/21 17:40 04/07/21 18:26 Temperature 97.4 F L 97.4 F L Temperature Source Oral Oral Pulse Rate 95 95 Pulse Rate [Lying] 68 Pulse Rate [Sitting] 89 Pulse Rate [Standing] 82 Respiratory Rate 17 17 Respiratory Effort Normal Non-Labored Respiratory Pattern Normal Blood Pressure 148/76 H 148/76 H Blood Pressure [Lying] 119/72 Blood Pressure [Sitting] 137/99 H Blood Pressure [Standing] 130/74 H Blood Pressure Mean 100 100 Blood Pressure Mean [Lying] 87 Blood Pressure Mean [Sitting] 111 Blood Pressure Mean [Standing] 92 Pulse Ox 100 100 Oxygen Delivery Method Room Air Room Air 04/07/21 19:21 04/07/21 19:26 Temperature 97.4 F L Temperature Source Oral Pulse Rate 74 74 Pulse Rate [Lying] Pulse Rate [Sitting] Pulse Rate [Standing] Respiratory Rate 19 H 19 H Respiratory Effort Respiratory Pattern Blood Pressure 133/81 H 133/81 H Blood Pressure [Lying] Blood Pressure [Sitting] Blood Pressure [Standing] Blood Pressure Mean 98 98 Blood Pressure Mean [Lying] Blood Pressure Mean [Sitting] Blood Pressure Mean [Standing] Pulse Ox 99 99 Oxygen Delivery Method Room Air Room Air Positive well nourished and well developed General Appearance ED: well developed and NAD HEENT Reports moist mucous membranes HEENT Narrative: Both TMs are erythematous, with altered landmarks and some bulging consistent with otitis. No pain with pulling on the pinna or pushing on the tragus bilaterally. No external auditory canal discharge, erythema, edema. No sinus tenderness. No purulent nasal discharge. Oropharynx normal. Tongue normal without signs of contusion. normocephalic and atraumatic Eyes PERRL and EOMs intact bilaterally Neck full ROM and supple Resp normal respiratory effort and clear to auscultation bilaterally Cardio regular rate, regular rhythm and no murmurs Rate: Negative for bradycardia or tachycardic GI non-tender and non-distended Auscultation: normoactive bowel sounds Palpation: soft Back/Spine no CVA tenderness General Back: other FROM Extremity normal to inspection General Extremety ED: Negative for edema, pulses abnormal or tenderness General Extremity: Negative for edema or pulses abnormal Neuro oriented x3, CN's II-XII intact bilaterally and no sensory deficits noted Sensorium / Orientation: awake and alert Motor Exam: strength 5/5 throughout Skin no rashes or lesions noted and no wounds MDM MDM MDM Narrative Medical decision making narrative: We left the patient off of oxygen and he had excellent oxygenation throughout his ED stay, 99-100%, even when we ambulated him. He had no further symptoms while in the emergency department and felt fine. His D-dimer was elevated, we sent her for CT angiography of the chest, negative for pulmonary emboli. It did show bilateral infiltrates, of which the patient is completely asymptomatic. Therefore my assumption is that this is residual from his Covid pneumonia. I discussed that with the patient, he states he was diagnosed with that. He walked down and around the emergency department and felt fine without any recurrent symptoms. His initial glucose was 101 and his orthostatics were negative here. It is possible he was hypoglycemic or dehydrated causing this, we did give him some fluids and he is feeling well so I think this is a relatively low risk syncope that I would be okay with him following up as an outpatient for. He was amenable to that. If he continues to have any other issues, a Holter monitor could be considered. We discussed reasons to return over the weekend before he is able to follow-up. Lab Data Attestation: I reviewed the patient's lab results. Labs: Laboratory Results - last 24 hr 04/07/21 04/07/21 04/07/21 17:30 17:40 17:40 WBC Cancelled Corrected WBC Cancelled RBC Cancelled Hgb Cancelled Hct Cancelled MCV Cancelled MCH Cancelled MCHC Cancelled RDW Std Deviation Cancelled RDW Coeff of Viri Cancelled Plt Count Cancelled MPV Cancelled Immature Gran % (Auto) Cancelled Neut % (Auto) Cancelled Lymph % (Auto) Cancelled [place] % (Auto) Cancelled Eos % (Auto) Cancelled Baso % (Auto) Cancelled Absolute Neuts (auto) Cancelled Absolute Lymphs (auto) Cancelled Total Counted Cancelled Neutrophils % (Manual) Cancelled Band Neutrophils % Cancelled Lymphocytes % (Manual) Cancelled Monocytes % (Manual) Cancelled Eosinophils % (Manual) Cancelled Basophils % (Manual) Cancelled Metamyelocytes % Cancelled Myelocytes % Cancelled Promyelocytes % Cancelled Blast Cells % Cancelled Plasma Cell % (Manual) Cancelled Other Cells % Cancelled Nucleated RBC % Cancelled Nucleated RBCs/100 WBC Cancelled Differential Comment Cancelled Diff Path Review Cancelled Hypersegmented Neuts Cancelled Atypical Lymphocytes Cancelled Reactive Lymphocytes Cancelled Smudge Cells Cancelled Toxic Granulation Cancelled Toxic Vacuolation Cancelled Dohle Bodies Cancelled Terri Rods Cancelled Platelet Estimate Cancelled Plt Morphology Comment Cancelled RBC Morphology Cancelled Polychromasia Cancelled Hypochromasia Cancelled Poikilocytosis Cancelled Basophilic Stippling Cancelled Anisocytosis Cancelled Microcytosis Cancelled Macrocytosis Cancelled Spherocytes Cancelled Sickle Cells Cancelled Target Cells Cancelled Tear Drop Cells Cancelled Ovalocytes Cancelled Stomatocytes Cancelled [place] Bodies Cancelled [place] Cells Cancelled Bite Cells Cancelled Crenated Cell Cancelled Acanthocytes (Spur) Cancelled Rouleaux Cancelled Schistocytes Cancelled D-Dimer Quant (PE/DVT) 1.01 H* Sodium Potassium Chloride Carbon Dioxide Anion Gap BUN Creatinine Estim Creat Clear Calc Est GFR (MDRD) Af Amer Est GFR (MDRD) Non-Af BUN/Creatinine Ratio Glucose Calcium Troponin I High Sens POC Glucose 101 04/07/21 04/07/21 17:40 18:36 WBC 21.6 H Corrected WBC RBC 4.66 Hgb 13.2 Hct 40.2 MCV 86.3 MCH 28.3 MCHC 32.8 RDW Std Deviation 43.8 RDW Coeff of Viri 13.9 Plt Count 429 MPV 9.1 Immature Gran % (Auto) 1.000 H Neut % (Auto) 81.9 H Lymph % (Auto) 12.7 L [place] % (Auto) 3.5 Eos % (Auto) 0.6 Baso % (Auto) 0.3 Absolute Neuts (auto) 17.7 H Absolute Lymphs (auto) 2.75 Total Counted Neutrophils % (Manual) Band Neutrophils % Lymphocytes % (Manual) Monocytes % (Manual) Eosinophils % (Manual) Basophils % (Manual) Metamyelocytes % Myelocytes % Promyelocytes % Blast Cells % Plasma Cell % (Manual) Other Cells % Nucleated RBC % 0 Nucleated RBCs/100 WBC Differential Comment Diff Path Review Hypersegmented Neuts Atypical Lymphocytes Reactive Lymphocytes Smudge Cells Toxic Granulation Toxic Vacuolation Dohle Bodies Terri Rods Platelet Estimate Plt Morphology Comment RBC Morphology Polychromasia Hypochromasia Poikilocytosis Basophilic Stippling Anisocytosis Microcytosis Macrocytosis Spherocytes Sickle Cells Target Cells Tear Drop Cells Ovalocytes Stomatocytes [place] Bodies [place] Cells Bite Cells Crenated Cell Acanthocytes (Spur) Rouleaux Schistocytes D-Dimer Quant (PE/DVT) Sodium 142 Potassium 3.4 L Chloride 107 Carbon Dioxide 26.0 Anion Gap 9 BUN 12 Creatinine 0.85 Estim Creat Clear Calc 119.58 Est GFR (MDRD) Af Amer 145 Est GFR (MDRD) Non-Af 119 BUN/Creatinine Ratio 14.1 Glucose 94 Calcium 10.0 Troponin I High Sens 4 POC Glucose Radiography Diagnostic Testing: Clinical Impression(s) from Imaging Studies Chest CTA 04/07/21 18:43 IMPRESSION: 1. No demonstrated pulmonary embolism or arterial dissection. 2. There is bilateral pneumonia. Electronically Signed: Hunter Berger MD at 19:40 EST , Service support , EKG Initial EKG: Attestation: I personally reviewed and interpreted this EKG as follows: Interpretation: Sinus Rhythm (78) and No Acute Injury Pattern Comments: Normal axis. Normal EKG. No delta wave. Discharge Plan Triage Chief Complaint: Syncope ED Provider: Rasheed Mahoney Dx/Rx/DC Orders Clinical Impression: Syncope Instructions: Causes of Syncope, Diagnosing Syncope Prescriptions: No Action dexamethasone [Decadron] 6 mg tablet 6 mg PO DAILY Qty: 10 RF: 0 ondansetron 4 mg tablet,disintegrating 4 mg PO Q8H PRN (Reason: nausea and vomiting) 3 Days Qty: 7 RF: 0 levothyroxine 50 mcg tablet 50 mcg PO DAILY RF: 0 lisinopril 5 mg tablet 5 mg PO DAILY RF: 0 sertraline 50 mg tablet 50 mg PO DAILY RF: 0 cholecalciferol (vitamin D3) 125 mcg (5,000 unit) capsule 5,000 unit PO DAILY RF: 0 Primary Care Provider: Sabrina Martin NP Referrals: Sabrina Martin NP, [employer] [Primary Care Provider] - 3-5 Days (Call for appointment. Return to ER if needed.) Disposition Disposition: Home, Self Care
[2021-04-07 18:20] LABS: Anion Gap 9 (5-15); BUN 12 mg/dL (7-18); BUN/Creat Ratio 14.1 RATIO (10-20); Chloride 107 mmol/L (98-107); Creatinine, Serum 0.85 mg/dL (0.70-1.30); EST Glomerular Filtration Rate 119 mL/min (>60); Est Glom Filt Rate - Afr Amer 145 mL/min (>60); Estimated Creatinine Clearance 119.58 ml/min; Glucose 94 mg/dL (74-106); Potassium 3.4 mmol/L (3.5-5.1); Sodium Level 142 mmol/L (136-145); Troponin-I HS 4 pg/mL (3.0-78.0)
[2021-04-07 18:37] LABS: D-Dimer Quantitative (DVT/PE) 1.01 FEU/ug/m (0.27-0.49)
--- NOTE | 2021-04-07 18:43 | CT_ITS ---
EXAM: CT ANGIOGRAPHY CHEST WITHOUT AND WITH INTRAVENOUS CONTRAST CLINICAL INDICATION: syncope, elevated d-dimer TECHNIQUE: Helically acquired angiography images were obtained of the chest without and with intravenous contrast. This CT exam was performed using one or more of the following dose reduction techniques: automated exposure control, adjustment of the mA and/or kV according to patient size, and/or use of iterative reconstruction technique. This report was created using [employer] report generation technology. MIP reconstructed images were created and reviewed. CONTRAST: IV 100mL [id number] COMPARISON: None. FINDINGS: PULMONARY ARTERIES: No demonstrated pulmonary embolism or arterial dissection. AORTA: Unremarkable. Normal in caliber. No evidence of dissection. GREAT VESSELS OF AORTIC ARCH: Unremarkable. Normal in caliber. No evidence of dissection. LUNGS AND PLEURAL SPACES: There is bilateral pneumonia. No mass. No pleural effusion or thickening. HEART: Unremarkable. Heart size is normal. No pericardial effusion. No signs of right heart strain, ratio of right ventricle to left ventricle measures less than 1. MEDIASTINUM: Unremarkable. No mediastinal or hilar adenopathy. Esophagus is unremarkable. No hiatal hernia. THYROID: Unremarkable. No thyroid lesions. BONES/JOINTS: Unremarkable. No suspicious lytic or blastic abnormality. CT/CTA Chest W/WO Contrast IMPRESSION: 1. No demonstrated pulmonary embolism or arterial dissection. 2. There is bilateral pneumonia. Electronically Signed: Hunter Berger MD at 19:40 EST , Service support ,
[2021-04-07 18:45] LABS: Absolute Lymphocyte Count 2.75 X10^3/uL (0.83-4.51); Absolute Neutrophil Count 17.7 X10^3/uL (2.0-7.7); Basophil# 0.07 X10^3/uL; Basophil% 0.3 % (0-1); Eosinophil# 0.14 X10^3/uL; Eosinophils% 0.6 % (0-5); Hematocrit 40.2 % (40-54); Hemoglobin 13.2 g/dL (13.0-16.5); Lymphocyte # 2.75 X10^3/ul (0.83-4.51); Lymphocyte % 12.7 % (19-41); Mean Corp Hgb Conc 32.8 g/dL (32-36); Mean Corpuscular Hgb 28.3 pg (27.0-32.0); Mean Corpuscular Volume 86.3 fL (80-94); Mean Platelet Vol. 9.1 fl (6.2-12.0); Monocyte# 0.75 X10^3/uL; Monocyte% 3.5 % (0-10); NRBC Flagged by Analyzer 0 % (0-5); Neutrophil # 17.69 X10^3/uL (2.7-7.7); Neutrophil % 81.9 % (47-70); Platelet Count 429 K/mm3 (150-450); RBC Distribution Width CV 13.9 % (11.6-14.6); RBC Distribution Width SD 43.8 fl (35.1-43.9); Red Blood Count 4.66 M/mm3 (4.6-6.2); White Blood Count 21.6 K/mm3 (4.4-11.0)
[2021-04-07] MEDS: 0.9% Normal Saline 1,000 ML 999 ML IV (19:43)
== END 2021-04-07 21:04 | disposition home or self-care (01) ==
PROVIDERS: Emergency Provider Emergency Medicine; PCP Nurse Practitioner Family; Visit Provider Emergency Medicine
DX: R55 Syncope and collapse (principal); I10 Essential (primary) hypertension; E03.9 Hypothyroidism, unspecified; F32.A Depression, unspecified; F17.210 Nicotine dependence, cigarettes, uncomplicated; Z79.899 Other long term (current) drug therapy; Z86.16 Personal history of COVID-19
CPT/HCPCS: 71275; 80048; 82962; 84484; 85025; 85379; 93005; 96360; 99285; J7030; Q9967; A4216